=== PATIENT | female | born 1950 | race Caucasian/White ===

== ENCOUNTER 2017-12-07 07:34 | Emergency (ER) | payer OTHER ==
[~2017-12-07] VITALS: Ht 157.5 cm; Wt 48.5 kg
[2017-12-07 07:41] VITALS: BP 148/88; Ht 157.5 cm; Wt 48.5 kg
== END 2017-12-07 08:12 | disposition home or self-care (01) ==
LOC: ED 07:34
DX: Z48.02 Encounter for removal of sutures (principal); Z90.49 Acquired absence of other specified parts of digestive tract; Z90.710 Acquired absence of both cervix and uterus